=== PATIENT | female | born 1965 | race Caucasian/White ===

== ENCOUNTER 2021-03-31 17:50 | Emergency (ER) | payer BC ==
[2021-03-31] MEDS ORDERED: Dexamethasone 4 MG TAB ONE (18:23)
== END 2021-03-31 18:27 | disposition home or self-care (01) ==
LOC: BURERS 17:50
DX: J04.0 Acute laryngitis (principal); I10 Essential (primary) hypertension
CPT/HCPCS: 99283; J8540